=== PATIENT | male | born 1985 | race African-American/Black ===

== ENCOUNTER 2018-05-24 10:43 | Inpatient (IN) | payer OTHER ==
[~2018-05-24] VITALS: Ht 165.1 cm; Wt 196.0 kg
[~2018-05-24 10:43] MED LIST: MUCINEX D ER 11 EACH PO; ZITHROMAX500 MG PO
== END 2018-05-29 18:58 | disposition home or self-care (01) | DRG 638 ==
LOC: ER 10:43 → EDBD 11:27 → ER 11:27 → MEDJ 19:58
PROVIDERS: ADMIT Specialist
PROC: 4A033R1 Measurement of Arterial Saturation, Peripheral, Percutaneous Approach (ICD-10-PCS; principal; 2018-05-24)
DX: E11.00 Type 2 diabetes mellitus with hyperosmolarity without nonketotic hyperglycemic-hyperosmolar coma (NKHHC) (principal); N17.8 Other acute kidney failure; E86.0 Dehydration

== ENCOUNTER 2019-11-25 14:14 | Emergency (ER) | payer OTHER ==
[~2019-11-25] VITALS: Ht 172.7 cm; Wt 95.3 kg
[2019-11-25] MEDS ORDERED: FORTAMET500 MG (14:22)
[2019-11-25] MEDS ORDERED: ZESTRIL2.5 MG (14:22)
[2019-11-25] MEDS ORDERED: LIPITOR20 MG (14:23)
== END 2019-11-25 19:47 | disposition home or self-care (01) ==
LOC: ER 14:14
DX: E11.65 Type 2 diabetes mellitus with hyperglycemia (principal)

== ENCOUNTER 2021-04-14 08:00 | Outpatient (CLI) | payer OTHER ==
[~2021-04-14 08:00] MED LIST changes: +FORTAMET500 MG; +LIPITOR20 MG; +ZESTRIL2.5 MG
== END 2021-04-14 08:30 | disposition home or self-care (01) ==
LOC: PPH VACUNA 08:00
PROVIDERS: ATTEND Emergency Medicine Pediatric Emergency Medicine
DX: Z23 Encounter for immunization (principal)